=== PATIENT | male | born 1995 | race Asian ===

== ENCOUNTER 2016-10-01 00:25 | Emergency (ER) | payer BC ==
[~2016-10-01] VITALS: Ht 180.3 cm; Wt 81.6 kg
[2016-10-01 00:25] VITALS: BP 145/91; PULSE 70; RESP 14; TEMP 98.2; O2SAT 96
--- NOTE | 2016-10-01 00:25 | NUR ---
Patient to ER bed 7 to gown for evaluation. Side rails up. Report given to JEREMIAH Salazar.
--- NOTE | 2016-10-01 00:30 | NUR ---
Patient to ER C/O left great toe laceration, anterior aspect aprox 3 cm. Patient states that a decorative item fell on his toe. Bleeding controlled. No other signs of trauma or injury. AAOx4, unlabored breathing no signs of acute distress.
--- NOTE | 2016-10-01 00:30 | NUR ---
Note undone in [facility] - 10/01/16 at 0156 by NICOLE Patient to ER C/O left great tow laceration, anterior aspect aprox 3 cm. Patient states that a decorative item fell on his toe. Bleeding controlled. No other signs of trauma or injury. AAOx4, unlabored breathing no signs of acute distress. Addendum: 10/01/16 at 0156 by ROBERTGE Amendment undone in [facility] - 10/01/16 at 0156 by ROBERTGE *toe*
--- NOTE | 2016-10-01 00:32 | NUR ---
ER MD Oliver at bedside for evaluation
[2016-10-01] MEDS ORDERED: BACITRACIN 1 GM OINT TP ONE (00:45)
[2016-10-01] MEDS ORDERED: LIDOCAINE 1% 10 MG/ML, 20 ML MDV IJ ONE (00:45)
--- NOTE | 2016-10-01 00:50 | NUR ---
Patient has a 3 cm laceration to left toe. Dr. Oliver applied sutures using sterile technique. Edges well approximated. Site cleansed with NS & iodine. Dressing of gauze applied to site. No bleeding noted. Pt tolerated well.
[2016-10-01] MEDS ORDERED: DIPH-TET-PERTUS Vaccine 0.5 ML VIAL (ADACEL) IM ONE (01:00)
[2016-10-01 01:30] VITALS: BP 129/78; PULSE 73; RESP 15; TEMP 98; O2SAT 98
--- NOTE | 2016-10-01 01:30 | NUR ---
Patient given written and verbal discharge instructions and verbalizes understanding. MOISÉS Oliver discussed with patient the results and treatment provided. Patient in stable condition. ID arm band removed. Rx of motrin & bactrim given. Patient educated on pain management and to follow up with PMD. Pain Scale 0/10. Opportunity for questions provided and answered.
== END 2016-10-01 01:30 | disposition home or self-care (01) ==
LOC: SED 00:25
DX: S91.112A Laceration without foreign body of left great toe without damage to nail, initial encounter (principal); W22.8XXA Striking against or struck by other objects, initial encounter; Y93.89 Activity, other specified; Y92.89 Other specified places as the place of occurrence of the external cause; Y99.8 Other external cause status
CPT/HCPCS: 12002; 90471; 90715; 99283; J2001